=== PATIENT | female | born 1960 | race African-American/Black ===

== ENCOUNTER 2019-03-25 16:04 | Emergency (ER) | payer OTHER ==
[~2019-03-25] VITALS: Ht 170.2 cm; Wt 53.5 kg
[2019-03-25 16:42] VITALS: BP 177/91
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
[2019-03-25] MEDS ORDERED: IBUPROFEN 600 MG TABLET PO ONE ×2 (17:21→17:30)
--- NOTE | 2019-03-25 18:53 | NUR ---
Patient discharged to home in stable condition. Written and verbal after care instructions given. Patient verbalizes understanding of instruction.
== END 2019-03-25 19:11 | disposition home or self-care (01) ==
LOC: ER 16:07
DX: S63.591A Other specified sprain of right wrist, initial encounter (principal); S50.812A Abrasion of left forearm, initial encounter; S50.811A Abrasion of right forearm, initial encounter; Z98.890 Other specified postprocedural states; V49.49XA Driver injured in collision with other motor vehicles in traffic accident, initial encounter; Y93.89 Activity, other specified; Y92.413 State road as the place of occurrence of the external cause; Y99.8 Other external cause status
CPT/HCPCS: 73090-TC